=== PATIENT | male | born 1960 | race Caucasian/White ===

== ENCOUNTER 2024-04-12 02:49 | Inpatient (IN) | payer BC ==
[~2024-04-12] VITALS: Ht 177.8 cm; Wt 113.4 kg
[2024-04-12 03:15] LABS: BASOPHILS # (AUTO) 0.1 K/UL (0.0-0.2); BASOPHILS % (AUTO) 0.6 % (0.0-2.0); EOSINOPHILS # (AUTO) 0.2 K/uL (0.0-0.7); EOSINOPHILS % (AUTO) 2.2 % (0.0-7.0); HEMATOCRIT 46.3 % (36.7-47.1); HEMOGLOBIN 15.7 g/dL (12.5-16.3); LYMPHOCYTES % (AUTO) 19.5 % (20.5-51.5); MEAN CORPUSCULAR HEMOGLOBIN 30.9 uug (23.8-33.4); MEAN CORPUSCULAR HGB CONC 34 g/dL (32.5-36.3); MEAN CORPUSCULAR VOLUME 91.3 fL (73.0-96.2); MONOCYTES # (AUTO) 0.8 K/uL (0.1-1.30); MONOCYTES % (AUTO) 7.6 % (0.0-11.0); NEUTROPHILS # (AUTO) 7.4 K/uL (1.8-8.9); NEUTROPHILS % (AUTO) 70.1 % (38.5-71.5); PLATELET COUNT (AUTO) 212 K/uL (152-348); RED BLOOD CELL COUNT(AUTO) 5.07 MIL/uL (4.06-5.63); RED CELL DISTRIBUTION WIDTH 15.5 % (12.1-16.2); WHITE BLOOD COUNT (AUTO) 10.5 K/uL (3.6-10.2)
[2024-04-12] MEDS ORDERED: ASPI81TA31 (03:19)
[2024-04-12] MEDS ORDERED: ATOR80TA26 (03:19)
[2024-04-12] MEDS ORDERED: EZET10TA32 (03:19)
[2024-04-12] MEDS ORDERED: AMLO2.5T4 (03:19)
[2024-04-12] MEDS ORDERED: ginger (03:19)
[2024-04-12] MEDS ORDERED: FLUT1BLS12 (03:19)
[2024-04-12 03:39] LABS: ALBUMIN 3.7 g/dL (3.4-5.0); BILIRUBIN,TOTAL 1.4 mg/dL (0.2-1.0); CREATININE 1.1 mg/dL (0.6-1.3); MAGNESIUM 1.8 mg/dL (1.8-2.4); POTASSIUM 4.2 mmol/L (3.5-5.1); TOTAL PROTEIN, SERUM 7.6 g/dL (6.4-8.2)
[2024-04-12] MEDS ORDERED: ASPIRIN 81 MG TAB.CHEW ONE (03:47)
[2024-04-12] MEDS: ASPIRIN 81 MG TAB.CHEW PO ONE (03:58)
[2024-04-12] MEDS ORDERED: MAGNESIUM HYDROXIDE 30 ML LIQUID UDC PO PRN (04:45)
[2024-04-12] MEDS ORDERED: REMEDY ESSENTIAL ZINC PASTE 113 GM TP PRN (04:45)
[2024-04-12] MEDS ORDERED: ACETAMINOPHEN 325 MG TABLET PO PRN (04:45)
[2024-04-12] MEDS ORDERED: ONDANSETRON 4 MG/2 ML VIAL IV PRN (04:45)
[2024-04-12 05:37] LABS: CALCIUM 8.7 mg/dL (8.5-10.1); CREATININE 0.9 mg/dL (0.6-1.3); MAGNESIUM 1.9 mg/dL (1.8-2.4); PHOSPHOROUS 3.7 mg/dL (2.5-4.9)
[2024-04-12 08:31] LABS: BASOPHILS % (AUTO) 0.4 % (0.0-2.0); EOSINOPHILS # (AUTO) 0.1 K/uL (0.0-0.7); EOSINOPHILS % (AUTO) 1.2 % (0.0-7.0); HEMATOCRIT 45.9 % (36.7-47.1); HEMOGLOBIN 15.6 g/dL (12.5-16.3); LYMPHOCYTES # (AUTO) 2.2 K/uL (0.8-4.8); LYMPHOCYTES % (AUTO) 22.4 % (20.5-51.5); MEAN CORPUSCULAR HEMOGLOBIN 31.3 uug (23.8-33.4); MEAN CORPUSCULAR HGB CONC 34 g/dL (32.5-36.3); MEAN CORPUSCULAR VOLUME 92.2 fL (73.0-96.2); MONOCYTES # (AUTO) 0.7 K/uL (0.1-1.30); NEUTROPHILS # (AUTO) 6.9 K/uL (1.8-8.9); PLATELET COUNT (AUTO) 196 K/uL (152-348); RED BLOOD CELL COUNT(AUTO) 4.98 MIL/uL (4.06-5.63); RED CELL DISTRIBUTION WIDTH 15.4 % (12.1-16.2)
[2024-04-12] MEDS: PANTOPRAZOLE SODIUM 40 MG TABLET.DR PO SCH (08:35)
[2024-04-12 08:38] LABS: DIFFERENTIAL COMMENT 1
[2024-04-12] MEDS: ENOXAPARIN SODIUM 120 MG/0.8 ML SYRINGE SQ SCH (08:49)
[2024-04-12] MEDS ORDERED: ENOXAPARIN SODIUM 100 MG/ML DISP.SYRIN SQ SCH ×2 (09:00)
[2024-04-12] MEDS ORDERED: EMPA10TA PO (09:13)
[2024-04-12] MEDS ORDERED: LOSA25TA27 PO (09:14)
[2024-04-12] MEDS: DILTIAZEM HCL CD 120 MG CAP.SR.24H PO SCH (09:45)
[2024-04-12 12:00] VITALS: BP 132/73; TEMP 98.6; O2SAT 94
[2024-04-12 15:30] VITALS: BP 122/79; TEMP 98.6; O2SAT 96
[2024-04-12] MEDS: FLUTICASONE/VILANTEROL 1 EACH BLST.W.DEV INH SCH (17:29)
[2024-04-12 20:00] VITALS: BP 138/85; TEMP 97.9; O2SAT 92
[2024-04-12] MEDS ORDERED: FLUTICASONE/SALMETEROL 250/50 INHALER IH SCH (21:00)
[2024-04-12] MEDS: APIXABAN 5 MG TABLET PO SCH (21:24)
[2024-04-13 00:19] VITALS: BP 113/77; TEMP 97.4; O2SAT 96
[2024-04-13 06:16] VITALS: BP 118/77; TEMP 97
[2024-04-13 06:59] LABS: BASOPHILS % (AUTO) 0.4 % (0.0-2.0); EOSINOPHILS # (AUTO) 0.2 K/uL (0.0-0.7); EOSINOPHILS % (AUTO) 2.3 % (0.0-7.0); HEMATOCRIT 45.6 % (36.7-47.1); HEMOGLOBIN 15.8 g/dL (12.5-16.3); LYMPHOCYTES # (AUTO) 2.1 K/uL (0.8-4.8); LYMPHOCYTES % (AUTO) 22.9 % (20.5-51.5); MEAN CORPUSCULAR HEMOGLOBIN 31.4 uug (23.8-33.4); MEAN CORPUSCULAR HGB CONC 35 g/dL (32.5-36.3); MEAN CORPUSCULAR VOLUME 90.9 fL (73.0-96.2); MONOCYTES # (AUTO) 0.6 K/uL (0.1-1.30); MONOCYTES % (AUTO) 7.1 % (0.0-11.0); NEUTROPHILS # (AUTO) 6.1 K/uL (1.8-8.9); NEUTROPHILS % (AUTO) 67.3 % (38.5-71.5); PLATELET COUNT (AUTO) 201 K/uL (152-348); RED BLOOD CELL COUNT(AUTO) 5.02 MIL/uL (4.06-5.63)
[2024-04-13 07:15] LABS: DIFFERENTIAL COMMENT 1
[2024-04-13 07:19] LABS: CALCIUM 8.9 mg/dL (8.5-10.1); CREATININE 0.9 mg/dL (0.6-1.3); MAGNESIUM 2.1 mg/dL (1.8-2.4); PHOSPHOROUS 3.7 mg/dL (2.5-4.9); POTASSIUM 4.1 mmol/L (3.5-5.1)
[2024-04-13 07:30] VITALS: BP 149/80; TEMP 98.4; O2SAT 93
[2024-04-13] MEDS ORDERED: APIX5TAB PO (10:19)
[2024-04-13] MEDS ORDERED: DILT120C87 PO (10:19)
[2024-04-13 10:59] VITALS: BP 114/77; TEMP 97.6; O2SAT 95
== END 2024-04-13 11:25 | disposition home or self-care (01) | DRG 391 ==
LOC: ER 02:53 → TELE3 04:45 → MEDSURG3 04-13 08:18
PROVIDERS: ADMIT Nurse Practitioner Family; ATTEND Internal Medicine
DX: K30 Functional dyspepsia (principal); I21.A1 Myocardial infarction type 2; I48.91 Unspecified atrial fibrillation; E66.01 Morbid (severe) obesity due to excess calories; E78.5 Hyperlipidemia, unspecified; I10 Essential (primary) hypertension; I25.10 Atherosclerotic heart disease of native coronary artery without angina pectoris; J44.89 Other specified chronic obstructive pulmonary disease; F17.210 Nicotine dependence, cigarettes, uncomplicated; E11.9 Type 2 diabetes mellitus without complications; Z68.35 Body mass index [BMI] 35.0-35.9, adult; Z95.1 Presence of aortocoronary bypass graft; Z79.82 Long term (current) use of aspirin; Z79.02 Long term (current) use of antithrombotics/antiplatelets
CPT/HCPCS: 36415; 71045; 83735; 84100; 84484; 85025; 85610; 93307; G0378; J1650